=== PATIENT | male | born 1975 | race Caucasian/White ===

== ENCOUNTER → 2017-12-25 | Outpatient (CLI) | payer BC ==
--- NOTE | 2017-12-25 14:13 | Diagnostic Imaging Report ---
EXAMINATION: Lumbar spine. INDICATION: Back pain. FINDINGS: AP, lateral, and spot lateral views were obtained. There are no prior studies available for comparison. The lateral view shows the vertebral body heights and alignment to be within normal limits. There is narrowing of the disc space at L5-S1. The other intervertebral disc spaces are well maintained. There is no fracture or acute bony abnormality evident. There is no sign of a paraspinal mass. There is mild symmetrical sclerosis of the sacroiliac joints. IMPRESSION: 1. There is no evidence for an acute bony abnormality. 2. There is degenerative disc disease at L5-S1. If there is clinical concern regarding spinal stenosis or nerve root encroachment at the L5-S1 level, then MRI will be recommended for further study. Dictated by: Dictated on workstation # [id number]
== END ==
LOC: RAD 13:17
PROVIDERS: ATTEND Nurse Practitioner Family
DX: M51.17 Intervertebral disc disorders with radiculopathy, lumbosacral region (principal)
CPT/HCPCS: 72100

== ENCOUNTER 2018-12-11 09:17 | Observation (INO) | payer OTHER, BC ==
[~2018-12-11] VITALS: Ht 170.2 cm; Wt 122.5 kg
[2018-12-11] MEDS ORDERED: TETANUS,DIPTH,PERTUSS P/F (BOOSTRIX) 0.5 ML VIAL IM STA (09:31)
[2018-12-11 09:45] LABS: HEMOGLOBIN 14.7 G/DL (13.3-17.7); MEAN PLATELET VOLUME 9.8 FL (7.4-10.4); RED CELL DISTRIBUTION WIDTH 14.9 % (10.0-14.5); WHITE BLOOD COUNT 7.3 10^3/uL (4.3-11.0)
[2018-12-11] MEDS ORDERED: NS 100 ML (IVPB) BAG IV ONE (09:45)
[2018-12-11] MEDS ORDERED: IOHEXOL 350 MG/ML 100 ML (OMNIPAQUE 350) VIAL IV ONE (09:45)
[2018-12-11] MEDS ORDERED: RECEIVED CONTRAST (Hold Metformin) IV SCH (09:45)
--- NOTE | 2018-12-11 09:51 | Diagnostic Imaging Report ---
INDICATION: Trauma. Fell 10 feet striking the head. Shoulder pain. FINDINGS: A limited AP view of the chest excludes from visualization much of the lateral right lung and the costophrenic angle on the left. The heart is enlarged. No appreciable fracture deformity. No demonstrated pneumothorax or appreciable pleural fluid. IMPRESSION: Substantial limitations as described with no acute finding revealed. A chest CT is already ordered and pending to cover the excluded zones of the chest outside the dttnu-cg-ybew of this radiograph. Dictated by: Dictated on workstation # [id number]
--- NOTE | 2018-12-11 10:01 | ED Trauma-Multisystem ---
General Chief Complaint: Trauma EMS/Air Arrival Activat Stated Complaint: TRAUMA Nursing Triage Note: pt presents to ed via ems from fall from about 10 ft. Pt reports he hit some railing and scafolding on the way down. pt denies loc but does reports hitting head. pt is in full c-spine percautions upon arrival. Pt has abrasion/lac to back of head, lac to l upper cheek, and pain/deformity to l shoulder. ems reports pt recieved 100 mcg fentanyl in route for pain and 500 ml NS. Source of Information: Patient Exam Limitations: No Limitations History of Present Illness Date Seen by Provider: Dec 11, 2018 Time Seen by Provider: 09:17 Initial Comments Here by EMS with report of tendon 15 foot fall from scaffolding. Apparently he hit rails on the way down and then did hit his head. Does have a laceration and abrasion to the back side of the head and to the left cheek. Does have deformity to the left shoulder per EMS. No loss of consciousness. Patient has GCS of 15 on arrival and apparently has had that throughout EMS evaluation. Denies chest or abdominal pain. Denies pelvic or extremity pain other than the left shoulder. Tetanus is not up-to-date. Occurred: Just Prior to Arrival (proximally 0830) Severity: Moderate Pain/Injury Location: Back, Head, Upper Extremity (left shoulder) Method of Injury: Fall Modifying Factors: Immobilization; No Movement Loss of Consciousness: No Loss of Consciousness Associated Symptoms (Fall): No Abdominal Pain, No Chest Pain, No Confusion; Headache; No Lightheadedness, No Nausea/Vomiting, No Neck Pain, No Shortness of Air Allergies and Home Medications Allergies Coded Allergies: No Known Drug Allergies (Unverified , 12/11/18) Home Medications No Active Prescriptions or Reported Meds Patient Home Medication List Home Medication List Reviewed: Yes Review of Systems Review of Systems Constitutional: see HPI; No chills, No fever Eyes: No Symptoms Reported Ears: No Symptoms Reported Nose: No Symptoms Reported Mouth: No Symptoms Reported Throat: No Symptoms to Report Respiratory: No cough, No short of breath Cardiovascular: Denies Chest Pain, Denies Irregular Heart Rate Gastrointestinal: No abdominal pain, No nausea, No vomiting Genitourinary: no symptoms reported Musculoskeletal: see HPI, joint pain, muscle pain Skin: change in color, lesions Psychiatric/Neurological: Headache; Denies Weakness Past Xcnwpym-Mgdjhm-Dinrgl Hx Past Med/Social Hx: Reviewed Nursing Past Med/Soc Hx Patient Social History Alcohol Use: Occasionally Uses Recreational Drug Use: No Smoking Status: Former Smoker Former Smoker, Quit: Sep 12, 2018 Recent Foreign Travel: No Contact w/Someone Who Travel: No Recent Infectious Disease Expo: No Recent Hopitalizations: No Immunizations Up To Date Tetanus Booster (TDap): More than 5yrs Seasonal Allergies Seasonal Allergies: No Past Medical History Surgeries: No Respiratory: No Cardiac: No Neurological: No Genitourinary: No Gastrointestinal: No Endocrine: No HEENT: No Cancer: No Psychosocial: No Integumentary: No Blood Disorders: No Family Medical History Reviewed Nursing Family Hx No Pertinent Family Hx Physical Exam Vital Signs Vital Signs - First Documented 12/11/18 10:40 Temp 97.5 Pulse 66 Resp 12 B/P (MAP) 123/80 (94) Pulse Ox 100 Height, Weight, BMI Height: 5'7.00" Weight: 270lbs. oz. 122.846427gr; 42.18 BMI Method:Stated General Appearance: WD/WN, Mild Distress (shoulder pain), Obese Head: Ecchymosis (posterior), Other (superficial laceration and abrasion to the posterior scalp with surrounding contusion and ecchymosis); No De La Rosa's Sign Eyes: Bilateral Eye Normal Inspection, Bilateral Eye PERRL, Bilateral Eye EOMI Ears, Nose, Throat: Hearing Grossly Normal, No Evidence of ENT Injury, No Dental Injury Neck: Non Tender, Other (c-collar) Cardiovascular: Regular Rate, Rhythm, No Murmur Respiratory: Lungs Clear, Normal Breath Sounds Gastrointestinal: Non Tender, Soft Back: Normal Inspection, No CVA Tenderness, No Vertebral Tenderness Extremity: Pelvis Stable, Other (tender to the left shoulder and he is guarding that.) Neurologic/Psychiatric: Alert, Oriented x3, No Motor/Sensory Deficits, Normal Mood/Affect Skin: Warm/Dry, Ecchymosis (posterior scalp), Other (one to 2 cm laceration to the left cheek. Abrasion/laceration to the posterior scalp with surrounding ecchymosis.) [place] Coma Score Best Eye Response (Jessica): (4) Open Spontaneously Best Verbal Response ([place]): (5) Oriented Best Motor Response ([place]): (6) Obeys Commands Procedures/Interventions Wound Location: Face Other Wound Location Left cheek Wound Length (cm): 1.5 Wound's Depth, Shape: superficial, linear Wound Explored: contaminated Irrigated w/ Saline (ccs): 125 Betadine Prep?: Yes Anesthesia: Lidocaine w/ Epi Volume Anesthetic (ccs): 3 Wound Debrided: minimal Suture: Prolene Suture Size: 5-0 Number of Sutures: 2 Layer Closure?: 1 Number Deep Layer Sutures: 0 Sterile Dressing Applied?: Yes Progress Procedure performed by Mina Mcintosh APRN. Tolerated procedure well with no complications. Covered with antibiotic ointment and dressing. Progress/Results/Core Measures Results/Orders Lab Results Laboratory Tests Test 12/11/18 09:35 Range/Units White Blood Count 7.3 4.3-11.0 10^3/uL Red Blood Count 4.94 4.35-5.85 10^6/uL Hemoglobin 14.7 13.3-17.7 G/DL Hematocrit 44 40-54 % Mean Corpuscular Volume 88 80-99 FL Mean Corpuscular Hemoglobin 30 25-34 PG Mean Corpuscular Hemoglobin Concent 34 32-36 G/DL Red Cell Distribution Width 14.9 H 10.0-14.5 % Platelet Count 317 130-400 10^3/uL Mean Platelet Volume 9.8 7.4-10.4 FL Sodium Level 138 135-145 MMOL/L Potassium Level 4.0 3.6-5.0 MMOL/L Chloride Level 107 98-107 MMOL/L Carbon Dioxide Level 23 21-32 MMOL/L Anion Gap 8 5-14 MMOL/L Blood Urea Nitrogen 17 7-18 MG/DL Creatinine 1.17 0.60-1.30 MG/DL Estimat Glomerular Filtration Rate > 60 BUN/Creatinine Ratio 15 Glucose Level 122 H 70-105 MG/DL Calcium Level 9.0 8.5-10.1 MG/DL Total Bilirubin 0.3 0.1-1.0 MG/DL Direct Bilirubin 0.2 0.0-0.3 MG/DL Indirect Bilirubin 0.1 MG/DL Aspartate Amino Transf (AST/SGOT) 33 5-34 U/L Alanine Aminotransferase (ALT/SGPT) 36 0-55 U/L Alkaline Phosphatase 69 40-136 U/L Total Protein 7.0 6.4-8.2 GM/DL Albumin 3.9 3.2-4.5 GM/DL Serum Alcohol < 10 <10 MG/DL My Orders Orders - ERNST ORTEGA MD Ct Head/Cervical Spine Wo (12/11/18 09:31) Ct Chest W (12/11/18:31) Chest 1 View, Ap/Pa Only (12/11/18 09:31) Cbc No Diff (12/11/18 09:31) Basic Metabolic Panel (12/11/18:31) Liver Panel (12/11/18:31) Alcohol (12/11/18:31) Ua Culture If Indicated (12/11/18:31) Type And Screen (12/11/18:31) End Tidal Co2 (12/11/18:31) Monitor-Rhythm Ecg Trace Only (12/11/18:) Dipht,Pertuss(Acell),Tet Adult (Boostrix (12/11/18 09:31) Iohexol Injection (Omnipaque 350 Mg/Ml 1 (12/11/18 09:45) Contrast Received (Contrast Received) (12/11/18 09:45) Ns (Ivpb) (Sodium Chloride 0.9% Ivpb Bag (12/11/18 09:45) Shoulder, Left, 3 Views (12/11/18 10:12) Fentanyl Injection (Sublimaze Injection (12/11/18 10:29) Lidocaine/Epi Mpf 2% 1:200,000 (Xylocain (12/11/18 11:45) Lidocaine/Epi 2% 1:100,000 (Xylocaine/Ep (12/11/18 11:33) Shoulder Immoblizer (12/11/18 12:00) Medications Given in ED Current Medications Medications Dose Ordered Sig/Shira Route Start Time Stop Time Status Last Admin Dose Admin Iohexol 75 ml ONCE ONCE IV 12/11/18 09:45 12/11/18 09:46 DC 12/11/18 09:56 75 ML Sodium Chloride 100 ml ONCE ONCE IV 12/11/18 09:45 12/11/18 09:46 DC 12/11/18 09:56 100 ML Vital Signs/I&O 12/11/18 10:40 Temp 97.5 Pulse 66 Resp 12 B/P (MAP) 123/80 (94) Pulse Ox 100 Progress Progress Note : Progress Note Seen and evaluated on arrival. Type II trauma activation due to fall and injury. ATLS exam performed. IV by EMS. Labs, chest x-ray, CT head and neck without contrast as well as CT chest with contrast ordered. Left shoulder x-ray ordered. Trauma surgeon, Dr. Doyle is here on patient's arrival. He agrees with plan. 1002: CT chest does not show any intrathoracic abnormality nor does chest x-ray per preliminary read. Pending CT head and neck and left shoulder x- ray. Dr. Doyle aware and agrees with emergency department evaluation and plan. 1110: C collar removed after negative CT scan. We will repair the wound on the face. Patient is drowsy and family is concerned as he lives by himself. We will consider observation admission. This was discussed with Dr. Doyle who agrees. I discussed the case with Dr. Jack and he will look at the x-rays. 1130: Dr. Jack is looked at the x-rays and is referring the patient to Dr. Will for appointment. I did call Dr. Will's office and we do have an appointment set for him at 1430 tomorrow (12/12/18) at the [place], [place], office. This was passed onto the patient and family. We will admit the patient overnight for observation due to concussion symptoms and patient agrees and family is appreciative. Admit, observation status. Shoulder sling immobilizer be placed to the left shoulder. Diagnostic Imaging Diagonstic Imaging: Xray Plain Films/CT/US/NM/MRI: chest Comments [facility] [place] NAME: SINDY JOHNSON [facility] REC#: [id number] PT STATUS: REG ER : 1975 PHYSICIAN: ERNST ORTEGA MD ADMIT DATE: 12/11/18/ER Draft Date of Exam:12/11/18 CHEST 1 VIEW, AP/PA ONLY INDICATION: Trauma. Fell 10 feet striking the head. Shoulder pain. FINDINGS: A limited AP view of the chest excludes from visualization much of the lateral right lung and the costophrenic angle on the left. The heart is enlarged. No appreciable fracture deformity. No demonstrated pneumothorax or appreciable pleural fluid. IMPRESSION: Substantial limitations as described with no acute finding revealed. A chest CT is already ordered and pending to cover the excluded zones of the chest outside the xoqsx-wi-vxti of this radiograph. Dictated on workstation # [id number] Dict: 12/11/18 0947 Trans: 12/11/18 0950 [id number] Interpreted by: TIFFANIE SOLIS Electronically signed by: Diagonstic Imaging: CT Plain Films/CT/US/NM/MRI: c-spine, head Comments NAME: SINDY JOHNSON [facility] REC#: [id number] PT STATUS: REG ER : 1975 PHYSICIAN: ERNST ORTEGA MD ADMIT DATE: 12/11/18/ER Signed Date of Exam: 12/11/18 CT HEAD/CERVICAL SPINE WO PROCEDURE: CT head and CT cervical spine without contrast. TECHNIQUE: Multiple contiguous axial images were obtained through the brain and cervical spine without the use of intravenous contrast. Sagittal and coronal reformations through the cervical spine were then performed. INDICATION: Head and neck trauma after fall. FINDINGS: The ventricles and sulci are within normal limits. No hydrocephalus. There is no midline shift. There is no intracranial mass, hemorrhage or extra-axial fluid collection. Calvarium is intact. Opacification of the ethmoid air cells sphenoid sinus and left maxillary sinus. Mastoid air cells are clear. There is straightening of the normal cervical lordosis. The vertebral body heights are well-maintained. The prevertebral soft tissues are within normal limits. There is no fracture or traumatic subluxation. The odontoid is intact. Lateral masses are well aligned. The lung apices are clear. IMPRESSION: Moderate sinus disease as described. No acute intracranial abnormality. No fracture or traumatic subluxation of the cervical spine. Dictated by: Dictated on workstation # [id number] Dict: 12/11/18 1004 Trans: 12/11/18 1029 Interpreted by: KEREN ABEBE MD Electronically signed by: KEREN ABEBE MD 12/11/18 1029 Diagonstic Imaging: CT Plain Films/CT/US/NM/MRI: chest Comments [facility] [place] NAME: SINDY JOHNSON [facility] REC#: [id number] PT STATUS: REG ER : 1975 PHYSICIAN: ERNST ORTEGA MD ADMIT DATE: 12/11/18/ER Draft Date of Exam:12/11/18 CT CHEST W PROCEDURE: CT chest with contrast only. TECHNIQUE: Multiple contiguous axial images were obtained through the chest after administration of intravenous contrast. INDICATION: Ten foot fall, chest and shoulder pain. There is no lung contusion, pneumothorax or hemothorax. No findings of pneumatocele or aspiration. There is no pleural or pericardial hemorrhage or effusion. The aorta is intact. There is no mediastinal hematoma. Sternum and manubrium appeared intact. Diaphragm appeared intact. The partially visualized right scapula appeared intact. The humerus is outside the yvjzp-ht-earz. Middle and lateral thirds of the clavicles outside the fnngh-av-whyd. The sternoclavicular joints normal. No identifiable rib fracture deformity. Visualized upper abdomen showed no free fluid or free air. Reconstruction views revealed the thoracic vertebral body heights to be maintained. Disc space is normal. Facet relationships normal. No fracture demonstrated. IMPRESSION: No acute or posttraumatic sequelae apparent at this exam. Much of the shoulders extend outside the xwbxx-ec-ojht. Dictated on workstation # [id number] Dict: 12/11/18 1026 Trans: 12/11/18 1035 [facility] [id number] Interpreted by: TIFFANIE SOLIS Electronically signed by: Diagonstic Imaging: Xray Plain Films/CT/US/NM/MRI: other (left shoulder) Comments INDICATION: Fall. FINDINGS: There is a markedly comminuted impacted fracture of the left humeral head and neck. AC joint is intact. Clavicle is intact. Left lung is clear. Soft tissues are unremarkable. IMPRESSION: Markedly comminuted and impacted fracture of the left humeral head and neck. Dictated by: Dictated on workstation # [id number] Dict: 12/11/18 1011 Trans: 12/11/18 1039 Interpreted by: KEREN ABEBE MD Electronically signed by: KEREN ABEBE MD 12/11/18 1039 Departure Communication (Admissions) Time/Spoke to Admitting Phy: 11:10 Impression Primary Impression: Shoulder fracture, left Qualified Codes: S42.92XA - Fracture of left shoulder girdle, part unspecified , initial encounter for closed fracture Additional Impressions: Concussion without loss of consciousness Qualified Codes: S06.0X0A - Concussion without loss of consciousness, initial encounter Laceration of face Qualified Codes: S01.81XA - Laceration without foreign body of other part of head, initial encounter Disposition: ADMITTED INPATIENT Condition: Stable Admissions Decision to Admit Reason: Admit from ER (Trauma) Decision to Admit/Date: Dec 11, 2018 Time/Decision to Admit Time: 11:10 Departure-Patient Inst. Referrals: BEKAH HARTLEY DO (PCP/Family) Primary Care Physician Scripts No Active Prescriptions or Reported Meds Copy Copies To 1: MARVIN WILL MD Copies To 2: BEKAH HARTLEY TIMOTHY D MD Dec 11, 2018 10:01
[2018-12-11 10:08] LABS: ALANINE AMINOTRANSFERASE 36 U/L (0-55); ALBUMIN 3.9 GM/DL (3.2-4.5); ALKALINE PHOSPHATASE 69 U/L (40-136); BILIRUBIN,DIRECT 0.2 MG/DL (0.0-0.3); BILIRUBIN,INDIRECT 0.1 MG/DL; BILIRUBIN,TOTAL 0.3 MG/DL (0.1-1.0); BUN/CREATININE RATIO 15; CARBON DIOXIDE 23 MMOL/L (21-32); CHLORIDE 107 MMOL/L (98-107); CREATININE SERUM 1.17 MG/DL (0.60-1.30); GFR ESTIMATED > 60; GLUCOSE 122 MG/DL (70-105); SODIUM 138 MMOL/L (135-145)
--- NOTE | 2018-12-11 10:12 | Diagnostic Imaging Report ---
PROCEDURE: CT head and CT cervical spine without contrast. TECHNIQUE: Multiple contiguous axial images were obtained through the brain and cervical spine without the use of intravenous contrast. Sagittal and coronal reformations through the cervical spine were then performed. INDICATION: Head and neck trauma after fall. FINDINGS: The ventricles and sulci are within normal limits. No hydrocephalus. There is no midline shift. There is no intracranial mass, hemorrhage or extra-axial fluid collection. Calvarium is intact. Opacification of the ethmoid air cells sphenoid sinus and left maxillary sinus. Mastoid air cells are clear. There is straightening of the normal cervical lordosis. The vertebral body heights are well-maintained. The prevertebral soft tissues are within normal limits. There is no fracture or traumatic subluxation. The odontoid is intact. Lateral masses are well aligned. The lung apices are clear. IMPRESSION: Moderate sinus disease as described. No acute intracranial abnormality. No fracture or traumatic subluxation of the cervical spine. Dictated by: Dictated on workstation # [id number]
[2018-12-11] MEDS ORDERED: fentaNYL INJECTION 100 MCG/2 ML AMP IVP STA (10:29)
--- NOTE | 2018-12-11 10:36 | Diagnostic Imaging Report ---
PROCEDURE: CT chest with contrast only. TECHNIQUE: Multiple contiguous axial images were obtained through the chest after administration of intravenous contrast. INDICATION: Ten foot fall, chest and shoulder pain. There is no lung contusion, pneumothorax or hemothorax. No findings of pneumatocele or aspiration. There is no pleural or pericardial hemorrhage or effusion. The aorta is intact. There is no mediastinal hematoma. Sternum and manubrium appeared intact. Diaphragm appeared intact. The partially visualized right scapula appeared intact. The humerus is outside the glzai-no-jwwz. Middle and lateral thirds of the clavicles outside the kcohp-fd-rebh. The sternoclavicular joints normal. No identifiable rib fracture deformity. Visualized upper abdomen showed no free fluid or free air. Reconstruction views revealed the thoracic vertebral body heights to be maintained. Disc space is normal. Facet relationships normal. No fracture demonstrated. IMPRESSION: No acute or posttraumatic sequelae apparent at this exam. Much of the shoulders extend outside the uviqf-zc-msib. Dictated by: Dictated on workstation # [id number]
[2018-12-11] MEDS ORDERED: LIDOCAINE/EPI 2% 1:100,00 (XYLOCAINE) 20 ML VIAL ONE (11:33)
[2018-12-11] MEDS ORDERED: LIDOCAINE/EPI 2% 1:200,00 (XYLOCAINE) 10 ML VIAL INJ ONE (11:45)
--- NOTE | 2018-12-11 11:45 | RADIOLOGY REPORT ---
NAME: SINDY JOHNSON [facility] REC#: [id number] PT STATUS: REG ER : 1975 PHYSICIAN: ERNST ORTEGA MD ADMIT DATE: 12/11/18/ER CORRECTED Signed Date of Exam:12/11/18 SHOULDER, LEFT, 3 VIEWS INDICATION: Fall. FINDINGS: There is a markedly comminuted impacted fracture of the left humeral head and neck. AC joint is intact. Clavicle is intact. Left lung is clear. Soft tissues are unremarkable. IMPRESSION: Markedly comminuted and impacted fracture of the left humeral head and neck. Dictated by: Dictated on workstation # [id number] Dict: 12/11/18 1011 Trans: 12/11/18 1039 [facility] [id number] Interpreted by: KEREN ABEBE MD Electronically signed by: KEREN ABEBE MD 12/11/18 1039 MTDD
[2018-12-11] MEDS ORDERED: fentaNYL INJECTION 100 MCG/2 ML AMP ONE (12:40)
--- NOTE | 2018-12-11 12:40 | NUR ---
THIS RN CALLED TO PT ROOM BY SUSAN. REPORTS WHEN TRYING TO SIT PT UPWARDS TO ATTACH SHOULDER IMOBILIZER PT BECAME DIAPHORETIC, WEAK, PALE, AND NAUSEATED. COOL WRAG PLACED ON PT FOREHEAD AND PT LAYED BACK DOWN. PT BP IS 63/45. DR ORTEGA INFORMED AND IV FLUIDS STARTED WO ON PT AT THIS TIME.
[2018-12-11] MEDS ORDERED: NS IV 1000 ML 1,000 ML ONE (12:43)
--- NOTE | 2018-12-11 13:01 | NUR ---
PT STARTED TO FEEL BETTER AT THIS TIME. DR ORTEGA REPORTS WOULD LIKE TO CONTINUE WITH SHOULDER IMMOBILIZER PLACEMENT. PT SAT UP IN BED AND SHOULDER IMMOBILIZER PLACED. PT CURRENT BP WITH FLUIDS GOING IS 108/73. PT HR 78
--- NOTE | 2018-12-11 13:30 | NUR ---
SINDY JOHNSON admitted to room 417-1, with an admitting diagnosis of LEFT SHOULDER FX AND CONCUSSION, on 12/11/18 from ED via BED/CART, accompanied by CO-WORKER AND ED STAFF. SINDY JOHNSON introduced to surroundings, call light, bed controls, phone, TV, temperature control, lights, meal times, smoking policy, visitor policy, side rail policy, bathrooms and showers. Patient Rights given to patient in the handbook. SINDY JOHNSON verbalizes understanding that [facility] is not responsible for the loss or damage to any personal effects or valuables that are kept in the patients possession during their hospitalization.
[2018-12-11] MEDS ORDERED: CATHETER FLUSH 10 ML SYR IV PRN (14:30)
[2018-12-11] MEDS ORDERED: ONDANSETRON 4 MG/2 ML (SDV) Z0FRAN IV PRN (14:30)
[2018-12-11] MEDS ORDERED: FLU QUADRIvalent (5+ YOA) 2018-2019 (AFLURIA) 0.5 ML IM ONE (14:45)
[2018-12-11] MEDS: fentaNYL INJECTION 100 MCG/2 ML AMP IV PRN ×4 (15:15→23:25)
[2018-12-11] MEDS: HYDROcodone/APAP 7.5 MG/325 MG (LORTAB, LORCET PLUS) TABLET PO PRN (15:16)
[2018-12-11 16:16] VITALS: BP 129/76
--- NOTE | 2018-12-11 17:38 | History & Physical-Surgical ---
History of Present Illness History of Present Illness Reason for visit/HPI Pt was a type II trauma activation, he complained of Left shoulder pain. He got pain meds in the ER and became very sleepy; felt that it was best to admit for observation. HPI per ED: Here by EMS with report of tendon 15 foot fall from scaffolding. Apparently he hit rails on the way down and then did hit his head. Does have a laceration and abrasion to the back side of the head and to the left cheek. Does have deformity to the left shoulder per EMS. No loss of consciousness. Patient has GCS of 15 on arrival and apparently has had that throughout EMS evaluation. Denies chest or abdominal pain. Denies pelvic or extremity pain other than the left shoulder. Tetanus is not up-to-date. Occurred: Just Prior to Arrival (proximally 0830) Severity: Moderate Pain/Injury Location: Back, Head, Upper Extremity (left shoulder) Method of Injury: Fall Modifying Factors: Immobilization; No Movement Loss of Consciousness: No Loss of Consciousness Associated Symptoms (Fall): No Abdominal Pain, No Chest Pain, No Confusion; Headache; No Lightheadedness, No Nausea/Vomiting, No Neck Pain, No Shortness of Air When I saw pt this evening he was still sleepy and complained of sweats. He also had shoulder pain but controlled with meds. Date of Admission Dec 11, 2018 at 12:44 Time Seen by a Provider: 09:25 I consulted on this patient on 12/11/18 17:32 Attending Physician José Manuel Doyle DO Admitting Physician Clement Lloyd DO Consult Allergies and Home Medications Allergies Coded Allergies: No Known Drug Allergies (Unverified , 12/11/18) Home Medications No Active Prescriptions or Reported Meds Patient Home Medication List Home Medication List Reviewed: Yes Past Fstwduh-Hboyir-Hawnaf Hx Patient Social History Alcohol Use: Occasionally Uses Recreational Drug Use: No Smoking Status: Former Smoker Former Smoker, Quit: Sep 12, 2018 Recent Foreign Travel: No Contact w/Someone Who Travel: No Recent Infectious Disease Expo: No Recent Hopitalizations: No Immunizations Up To Date Tetanus Booster (TDap): More than 5yrs Seasonal Allergies Seasonal Allergies: No Surgeries History of Surgeries: No Respiratory History of Respiratory Disorde: No Cardiovascular History of Cardiac Disorders: No Neurological History of Neurological Disord: No Genitourinary History of Genitourinary Disor: No Gastrointestinal History of Gastrointestinal Di: No Endocrine History of Endocrine Disorders: No HEENT History of HEENT Disorders: No Cancer History of Cancer: No Psychosocial History of Psychiatric Problem: No Integumentary History of Skin or Integumenta: No Blood Transfusions History of Blood Disorders: No Family Medical History Significant Family History: No Pertinent Family Hx, Other Conditions/Hx (Pt states neither parent has DM or HTN. Denies cancer in his family) Review of Systems Constitutional: No chills; weight gain EENTM: No blurred vision, No double vision, No epistaxis, No throat swelling Respiratory: No hemoptysis, No short of breath, No stridor Cardiovascular: No chest pain, No edema, No Hx of Intervention, No palpitations Gastrointestinal: No abdominal pain, No constipation, No diarrhea, No hematemesis Genitourinary: No dysuria, No frequency, No hematuria Musculoskeletal: joint pain, muscle stiffness, muscle cramps Psychiatric/Neurological: Denies Anxiety, Denies Depressed pt denies any abnormal bleeding or bruising Physical Exam Vital Signs Vital Signs - First Documented 12/11/18 12/11/18 10:40 16:16 Temp 97.5 Pulse 66 Resp 12 B/P (MAP) 123/80 (94) Pulse Ox 100 O2 Delivery Room Air Capillary Refill : Less Than 3 SecondsLess Than 3 Seconds Height, Weight, BMI Height: 5'7.00" Weight: 270lbs. 0.0oz. 122.018886yp; 42.3 BMI Method:Stated General Appearance: Mild Distress, Obese Eyes: Bilateral Eye PERRL, Bilateral Eye EOMI HEENT: Pharynx Normal, Moist Mucous Membranes; No Scleral Icterus (L), No Scleral Icterus (R) Neck: Full Range of Motion, Non Tender Respiratory: Chest Non Tender, Lungs Clear, Normal Breath Sounds, No Accessory Muscle Use, No Respiratory Distress Cardiovascular: Regular Rate, Rhythm, No Edema, No Murmur Gastrointestinal: Normal Bowel Sounds, No Organomegaly, No Pulsatile Mass, Non Tender, Soft Rectal: Deferred Genital/Rectal: Normal Genital Exam; No Blood at Uretheral Meatus Back: No CVA Tenderness, No Vertebral Tenderness Extremity: No Calf Tenderness, No Pedal Edema, Other (Left shoulder is extremely tender, no open fracture but appears to have deformity) Neurologic/Psychiatric: Alert, Oriented x3, Normal Mood/Affect, 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 Norm as Tested Skin: Normal Color, Cool, Damp Lymphatic: No Adenopathy (neck, axilla or groin) Data Review Labs Laboratory Tests 12/11/18 09:35: White Blood Count 7.3, Red Blood Count 4.94, Hemoglobin 14.7, Hematocrit 44, Mean Corpuscular Volume 88, Mean Corpuscular Hemoglobin 30, Mean Corpuscular Hemoglobin Concent 34, Red Cell Distribution Width 14.9H, Platelet Count 317, Mean Platelet Volume 9.8, Sodium Level 138, Potassium Level 4.0, Chloride Level 107, Carbon Dioxide Level 23, Anion Gap 8, Blood Urea Nitrogen 17, Creatinine 1.17, Estimat Glomerular Filtration Rate > 60, BUN/Creatinine Ratio 15, Glucose Level 122H, Calcium Level 9.0, Total Bilirubin 0.3, Direct Bilirubin 0.2, Indirect Bilirubin 0.1, Aspartate Amino Transf (AST/SGOT) 33, Alanine Aminotransferase (ALT/SGPT) 36, Alkaline Phosphatase 69, Total Protein 7.0, Albumin 3.9, Serum Alcohol < 10 12/11/18 12:48: Glucometer 101 Assessment/Plan Assessment/Plan Admission Diagonsis Left Acromial Fx Proximal humerous fx Admission Status: Observation Assessment/Plan Left Acromial Fx Proximal humerous fx Plan is to admit for pain control, IVF, anti-emetics. Shoulder placed in a sling. Regular diet. Clinical Quality Measures DVT/VTE Risk/Contraindication: Risk Factor Score Per Nursin RFS Level Per Nursing on Admit: 4+=Very High JOSÉ MANUEL DOYLE DO Dec 11, 2018 17:37
[2018-12-11 19:59] VITALS: BP 136/77
[2018-12-11] MEDS: CATHETER FLUSH 10 ML SYR IV SCH (20:54)
[2018-12-12] VITALS: BP 131/72
[2018-12-12] MEDS: fentaNYL INJECTION 100 MCG/2 ML AMP IV PRN ×3 (01:02→07:00)
[2018-12-12] MEDS: HYDROcodone/APAP 7.5 MG/325 MG (LORTAB, LORCET PLUS) TABLET PO PRN ×2 (01:59→08:39)
[2018-12-12 04:00] VITALS: BP 134/85
[2018-12-12 05:38] LABS: BASOPHILS % (AUTO) 0 % (0-10); EOSINOPHILS # (AUTO) 0.1 10^3/uL (0.0-0.3); EOSINOPHILS % (AUTO) 1 % (0-10); HEMATOCRIT 41 % (40-54); HEMOGLOBIN 13.8 G/DL (13.3-17.7); LYMPHOCYTES # (AUTO) 2.6 X 10^3 (1.0-4.0); LYMPHOCYTES % (AUTO) 30 % (12-44); MEAN CORPUSCULAR HEMOGLOBIN 30 PG (25-34); MEAN CORPUSCULAR HGB CONC 34 G/DL (32-36); MEAN CORPUSCULAR VOLUME 89 FL (80-99); MEAN PLATELET VOLUME 10.1 FL (7.4-10.4); MONOCYTES % (AUTO) 12 % (0-12); NEUTROPHILS % (AUTO) 57 % (42-75); PLATELET COUNT 253 10^3/uL (130-400); RED CELL DISTRIBUTION WIDTH 14.8 % (10.0-14.5); WHITE BLOOD COUNT 8.7 10^3/uL (4.3-11.0)
[2018-12-12] MEDS: CATHETER FLUSH 10 ML SYR IV SCH (06:42)
[2018-12-12 08:00] VITALS: BP 134/91
--- NOTE | 2018-12-12 10:17 | Progress Note ---
Subjective Time Seen by a Provider: 10:08 Subjective/Events-last exam Pt seen and examined, states besides shoulder he feels fine. Tolerating diet. Review of Systems General: No Chills, No Night Sweats Pulmonary: No Dyspnea, No Cough Cardiovascular: No: Chest Pain, Palpitations Gastrointestinal: No: Nausea, Vomiting, Abdominal Pain Objective Exam Vital Signs Date Time Temp Pulse Resp B/P (MAP) Pulse Ox O2 Delivery O2 Flow Rate FiO2 12/12/18 08:00 97.5 85 18 134/91 (105) 97 Room Air 12/12/18 04:00 96.8 80 20 134/85 (101) 95 Room Air 12/12/18 00:00 97.0 71 18 131/72 (91) 97 Room Air 12/11/18 20:00 Room Air 12/11/18 19:59 97.6 88 20 136/77 (96) 95 Room Air 12/11/18 16:49 Room Air 12/11/18 16:16 97.3 87 14 129/76 (93) 97 Room Air 12/11/18 13:23 97.5 65 12 119/79 (92) 100 12/11/18 10:40 97.5 66 12 123/80 (94) 100 I & O 12/12/18 07:00 Intake Total 1540 ml Output Total 1550 ml Balance -10 ml Capillary Refill : Less Than 3 SecondsLess Than 3 Seconds General Appearance: No Apparent Distress, WD/WN, Obese HEENT: Pharynx Normal, Moist Mucous Membranes; No Scleral Icterus (L), No Scleral Icterus (R) Neck: Full Range of Motion, Non Tender Respiratory: Chest Non Tender, Lungs Clear, Normal Breath Sounds, No Accessory Muscle Use, No Respiratory Distress Cardiovascular: Regular Rate, Rhythm, No Edema, No Murmur Gastrointestinal: normal bowel sounds, soft, no organomegaly Extremity: No Calf Tenderness, No Pedal Edema, Other (Left shoulder is extremely tender, no open fracture but appears to have deformity) Neurologic/Psychiatric: Alert, Oriented x3, Normal 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, 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 Skin: Normal Color, Warm/Dry Lymphatic: No Adenopathy (neck, axilla or groin) Results Lab Laboratory Tests 12/11/18 12:48: Glucometer 101 12/12/18 05:25: White Blood Count 8.7, Red Blood Count 4.58, Hemoglobin 13.8, Hematocrit 41, Mean Corpuscular Volume 89, Mean Corpuscular Hemoglobin 30, Mean Corpuscular Hemoglobin Concent 34, Red Cell Distribution Width 14.8H, Platelet Count 253, Mean Platelet Volume 10.1, Neutrophils (%) (Auto) 57, Lymphocytes (%) (Auto) 30 , Monocytes (%) (Auto) 12, Eosinophils (%) (Auto) 1, Basophils (%) (Auto) 0, Neutrophils # (Auto) 5.0, Lymphocytes # (Auto) 2.6, Monocytes # (Auto) 1.0, Eosinophils # (Auto) 0.1, Basophils # (Auto) 0.0 Assessment/Plan Assessment/Plan Assessment/Plan Left Acromial Fx Proximal humerous fx Pt is much improved and appears to be back to normal besides the shoulder. He has appt to see Orthopedic surgeon today at 215. Clinical Quality Measures DVT/VTE Risk/Contraindication: Risk Factor Score Per Nursin RFS Level Per Nursing on Admit: 4+=Very High JASWINDER العلي DO Dec 12, 2018 10:17
[2018-12-12] MEDS ORDERED: HYDR-3820 PO (10:18)
--- NOTE | 2018-12-12 10:20 | Discharge Inst-Surgical ---
Discharge Inst-Surgical Depart Medication/Instructions New, Converted or Re-Newed RX: RX Given to Pt/Family Patient Instructions Follow up Appt: Make appointment with Ortho. Instructions: No strenuous activity. May shower in 24 hours, no tub bath or soaking. Symptoms to Report: Appetite Changes, Extremity Discoloration, Numbness/Tingling, Swelling Increased , Bleeding Excessive, Eyesight Changes, Pain Increased, Urine Color Change, Constipation(Persistent), Fever over 101 degree F, Pain/Pressure in chest, Urinating Difficulty, Cough Up/Vomit Blood, Heart Beat Irreg/Pounding, Pain/ Pressure in jaw, Cramps in feet or legs, Lightheadedness, Pain/Pressure in shoulder, Diarrhea(Persistent), Memory Changes Suddenly, Questions/Concerns, Weight gain consecutive days, Dizziness/Fainting, Nausea/Vomiting, Shortness of Breath, Weight gain over 2 pounds If questions or concerns contact your physician Or seek help at emergency department. Activity Activity as Tolerated: Yes Activity Instructions: Avoid Pulling & Pushing Driving Instructions: No Driving/Refer to Dr. Michel Discharge Diet: No Restrictions Skin/Wound Care Bathing Instructions: JASWINDER Pereira DO Dec 12, 2018 10:20
[2018-12-12 10:43] VITALS: BP 134/91
== END 2018-12-12 10:35 | disposition home or self-care (01) ==
LOC: EDUNIT# 09:17 → ER 09:20 → 4TH 12:44
PROVIDERS: ADMIT Surgery; ATTEND Surgery
DX: S06.0X0A Concussion without loss of consciousness, initial encounter (principal); S42.202A Unspecified fracture of upper end of left humerus, initial encounter for closed fracture; S42.122A Displaced fracture of acromial process, left shoulder, initial encounter for closed fracture; S01.01XA Laceration without foreign body of scalp, initial encounter; S01.412A Laceration without foreign body of left cheek and temporomandibular area, initial encounter; R40.2412 Glasgow coma scale score 13-15, at arrival to emergency department; W12.XXXA Fall on and from scaffolding, initial encounter; Z87.891 Personal history of nicotine dependence
CPT/HCPCS: 12001; 36415; 70450; 71045; 71260; 72125; 73030; 80048; 80076; 80320; 82962; 85025; 85027; 86850; 86900; 86901; 90715; 93041; G0378

== ENCOUNTER 2018-12-19 11:15 | Emergency (ER) | payer OTHER, BC ==
[~2018-12-19] VITALS: Ht 177.8 cm; Wt 128.8 kg
[~2018-12-19 11:15] MED LIST: HYDR-3820 PO
[2018-12-19] MEDS ORDERED: CEPH-507 PO (12:32)
--- NOTE | 2018-12-19 12:32 | ED Integumentary General ---
General Chief Complaint: Skin/Wound Problems Stated Complaint: STITCHES CAME OUT;COUGH Nursing Triage Note: PT AMBULATED TO ROOM 6 PT HAS SURGICAL WOUND ON L SHOULDER ON MONDAY, PT HAS DRESSING IN PLACE SOAKED 1/2 WAY W BLOODY DRAINAGE, NO ODOR NOTED. DENIES INCREASED PAIN OR FEVER Source: patient Exam Limitations: no limitations History of Present Illness Date Seen by Provider: Dec 19, 2018 Time Seen by Provider: 12:28 Initial Comments Patient fell from scaffolding on 12/11/18 and sustained a left proximal humerus fracture. He had operative repair by Dr. Will at [facility] on 12/13/18. He presents today with bleeding from the incision to the anterior left humerus. There is no increase in swelling, no fevers chills or increase in pain. He is only concerned about the degree of oozing of blood as it had saturated his dressing this morning.. Timing/Duration: constant Severity: moderate Location: extremities Associated Symptoms: denies symptoms Allergies and Home Medications Allergies Coded Allergies: No Known Drug Allergies (Unverified , 12/11/18) Home Medications Hydrocodone/Acetaminophen 1 Each Tablet, 1 TAB PO Q6H Prescribed by: JASWINDER العلي on 12/12/18 1018 Patient Home Medication List Home Medication List Reviewed: Yes Review of Systems Review of Systems Constitutional: see HPI EENTM: see HPI Respiratory: no symptoms reported Cardiovascular: no symptoms reported Genitourinary: no symptoms reported Musculoskeletal: see HPI Skin: see HPI Psychiatric/Neurological: No Symptoms Reported Endocrine: No Symptoms Reported Past Lfwtooi-Ldgbpa-Mjhuxc Hx Patient Social History Alcohol Use: Denies Use Recreational Drug Use: No Smoking Status: Never a Smoker Former Smoker, Quit: Sep 12, 2018 Recent Foreign Travel: No Contact w/Someone Who Travel: No Recent Infectious Disease Expo: No Recent Hopitalizations: No Immunizations Up To Date Tetanus Booster (TDap): More than 5yrs Seasonal Allergies Seasonal Allergies: No Past Medical History Surgeries: No Respiratory: No Cardiac: No Neurological: No Genitourinary: No Gastrointestinal: No Endocrine: No HEENT: No Cancer: No Psychosocial: No Integumentary: No Blood Disorders: No Family Medical History No Pertinent Family Hx, Other Conditions/Hx Physical Exam Vital Signs Vital Signs - First Documented 12/19/18 11:20 Temp 97.9 Pulse 96 Resp 18 B/P (MAP) 127/93 (104) Pulse Ox 98 Capillary Refill : Less Than 3 Seconds General Appearance: WD/WN, no apparent distress HEENT: PERRL/EOMI, normal ENT inspection Respiratory: no respiratory distress, no accessory muscle use Neurologic/Psychiatric: alert, normal mood/affect, oriented x 3 Skin: other (there is an incision to the anterior aspect of the proximal humerus. This is held in place with Steri-Strips externally, I am not able to express any serous fluid or blood at this time but he had the dressing with him and it was in fact saturated with dark brown blood. There is no erythema surrounding the incision to suggest infection. His radial pulse is strong. We will reinforce the dressing with nonadherent gauze, then 4 x 4, then taped it will prophylactically treat him with some Keflex) Procedures/Interventions Suture Size: 5-0 Progress/Results/Core Measures Results/Orders Vital Signs/I&O 12/19/18 11:20 Temp 97.9 Pulse 96 Resp 18 B/P (MAP) 127/93 (104) Pulse Ox 98 Blood Pressure Mean: 104 Departure Impression Primary Impression: Draining postoperative wound Qualified Codes: T81.89XA - Other complications of procedures, not elsewhere classified, initial encounter Disposition: 01 HOME, SELF-CARE Condition: Stable Departure-Patient Inst. Decision time for Depature: 12:30 Referrals: BEKAH HARTLEY DO (PCP/Family) Primary Care Physician Patient Instructions: Wound Care Add. Discharge Instructions: 1. Return to ER for any concerns 2. Follow-up with Dr. Will. Call him today to notify of the wound drainage and see if he has any other recommendations for you. Change the gauze as needed. All discharge instructions reviewed with patient and/or family. Voiced understanding. Scripts Cephalexin (Keflex) 500 Mg Capsule 500 MG PO TID, #15 CAP Prov: STANTON COCHRAN SYSTEMS SUPPORT OFFICER 12/19/18 STANTON COCHRAN APRN Dec 19, 2018 12:32
[2018-12-19 12:40] VITALS: BP 127/93
== END 2018-12-19 12:40 | disposition home or self-care (01) ==
LOC: EDUNIT# 11:15 → ER 11:15
DX: T81.89XA Other complications of procedures, not elsewhere classified, initial encounter (principal)
CPT/HCPCS: 99282

== ENCOUNTER → 2019-12-04 | Outpatient (CLI) | payer BC ==
[~2019-12-04] MED LIST changes: +CATHETER FLUSH 10 ML SYR IV PRN; +CEPH-507 PO; +HOLD METFORMIN - RECEIVED CONTRAST 20 ML VIAL IV SCH; +IOHEXOL 350 MG/ML 100 ML (OMNIPAQUE 350) VIAL IV ONE; +NS 100 ML (IVPB) BAG IV ONE
--- NOTE | 2019-12-04 16:55 | Diagnostic Imaging Report ---
PROCEDURE: CT abdomen and pelvis with contrast. TECHNIQUE: Multiple contiguous axial images were obtained through the abdomen and pelvis after administration of intravenous contrast. Auto Exposure Controls were utilized during the CT exam to meet ALARA standards for radiation dose reduction. INDICATION: Right flank pain, six weeks in duration. FINDINGS: There are no opaque urinary tract stones. There is no hydroureteronephrosis. No perinephric or periureteric edema. The liver, gallbladder, bile ducts, spleen, adrenals, and pancreas are unremarkable. The aortoiliac and mesenteric vessels are patent and nonaneurysmal. While I cannot identify the appendix, there are no pericecal or right lower quadrant inflammatory changes to suggest underlying appendicitis. There is no ascites, abscess, hematoma, or other fluid collection. Prostate, seminal vesicles, and urinary bladder are unremarkable. No abdominopelvic aneurysm, adenopathy, or mass. No ascites or fluid collection. IMPRESSION: No acute-appearing abnormality. Dictated by: Dictated on workstation # [id number]
== END ==
LOC: RAD 15:15
PROVIDERS: ATTEND Family Medicine
DX: R10.11 Right upper quadrant pain (principal)
CPT/HCPCS: 74177

== ENCOUNTER → 2021-01-25 | Outpatient (CLI) | payer BC ==
[~2021-01-25] MED LIST changes: +ACHYD1T PO; +BAMLANIVIMAB (NON FORM) 700 MG in NS (IVPB) 100 ML IV ONE; -CATHETER FLUSH 10 ML SYR IV PRN; +EPINEPHrine INJECTION 1 MG/ML AMP IM PRN; -HOLD METFORMIN - RECEIVED CONTRAST 20 ML VIAL IV SCH; -HYDR-3820 PO; -IOHEXOL 350 MG/ML 100 ML (OMNIPAQUE 350) VIAL IV ONE; -NS 100 ML (IVPB) BAG IV ONE; +diphenhydrAMINE 50 MG/ML INJ (BENADRYL) IV PRN
[2021-01-25 13:20] VITALS: BP 138/95
== END ==
LOC: INFUSION 13:11
PROVIDERS: ATTEND Nurse Practitioner Family
DX: Z23 Encounter for immunization (principal); U07.1 COVID-19

== ENCOUNTER 2021-05-07 05:33 | Outpatient (RCR) | payer BC ==
[~2021-05-07] VITALS: Ht 17.8 cm; Wt 132.0 kg
[~2021-05-07 05:33] MED LIST changes: +ATOR10TA66 PO; -BAMLANIVIMAB (NON FORM) 700 MG in NS (IVPB) 100 ML IV ONE; -EPINEPHrine INJECTION 1 MG/ML AMP IM PRN; +LEVO50CA4 PO; +PANT40TA52 PO; -diphenhydrAMINE 50 MG/ML INJ (BENADRYL) IV PRN
== END 2021-05-07 08:58 | disposition home or self-care (01) ==
LOC: PREOP 05:33
PROVIDERS: ATTEND Surgery
DX: Z01.812 Encounter for preprocedural laboratory examination (principal); K21.9 Gastro-esophageal reflux disease without esophagitis; Z20.822 Contact with and (suspected) exposure to COVID-19
CPT/HCPCS: 87635

== ENCOUNTER 2021-05-11 11:40 | Day surgery (SDC) | payer BC ==
[~2021-05-11] VITALS: Ht 178 cm; Wt 132.0 kg
[2021-05-11] MEDS ORDERED: LACTATED RINGERS 1,000 ML IV STA (11:42)
[2021-05-11] MEDS ORDERED: HURRICAINE EXT TUBE (BENZOCAINE) XX PRN (11:45)
[2021-05-11] MEDS ORDERED: LACTATED RINGERS 1,000 ML IV ONE (11:46)
[2021-05-11 11:55] VITALS: BP 122/88
--- NOTE | 2021-05-11 11:55 | Progress Note-Pre Operative ---
Pre-Operative Progress Note H&P Reviewed The H&P was reviewed, patient examined and no changes noted. Date Seen by Provider: May 11, 2021 Time Seen by Provider: 11:55 Date H&P Reviewed: May 11, 2021 Time H&P Reviewed: 11:55 Pre-Operative Diagnosis: gerd ANGELIC LOGAN DO May 11, 2021 11:55
[2021-05-11] MEDS ORDERED: MIDAZOLAM 2 MG/2 ML (VERSED) VIAL ONE (13:28)
[2021-05-11] MEDS ORDERED: proPOfol 200 MG/20 ML (DIPRIVAN) VIAL IV ONE (13:28)
[2021-05-11] MEDS ORDERED: SUCR1TAB36 PO (13:48)
--- NOTE | 2021-05-11 13:49 | Discharge Inst-Simple/Standard ---
Discharge Inst-Standard Discharge Medications New, Converted or Re-Newed RX: Transmitted to Pharmacy Patient Instructions/Follow Up Plan of Care/Instructions/FU: 2 weeks Reema Activity as Tolerated: Yes Discharge Diet: Regular Diet ANGELIC LOGAN DO May 11, 2021 13:49
--- NOTE | 2021-05-11 13:50 | Progress Note-Post Operative ---
Post-Operative Progess Note Surgeon (s)/Felt Strip Finisher (s) Surgeon ANGELIC LOGAN DO Felt Strip Finisher: na Pre-Operative Diagnosis gerd Post-Operative Diagnosis slight gastritis, GE polyp Procedure & Operative Findings Date of Procedure 05/11/21 Procedure Performed/Findings egd c biopsy antrum, hot bx polypectomy ge junction Anesthesia Type per aurist Estimated Blood Loss Estimated blood loss (mL): scant Specimens/Packing Specimens Removed antrum, ge polyp ANGELIC LOGAN DO May 11, 2021 13:50
--- NOTE | 2021-05-11 13:51 | Anesthesia-General Post-Op ---
MAC Patient Condition Mental Status/LOC: Same as Preop Cardiovascular: Satisfactory Nausea/Vomiting: Absent Respiratory: Satisfactory Pain: Controlled Complications: Absent Post Op Complications Complications None Follow Up Care/Instructions Patient Instructions None needed. Anesthesiology Discharge Order Discharge Order Patient is doing well, no complaints, stable vital signs, no apparent adverse anesthesia problems. No complications reported per nursing. PEDRO SCOTT CRNA May 11, 2021 13:51
[2021-05-11 13:52] VITALS: BP 111/69
[2021-05-11 13:55] VITALS: BP 116/82
[2021-05-11 14:20] VITALS: BP 120/79
[2021-05-11 14:25] VITALS: BP 120/79
--- NOTE | 2021-05-11 19:07 | OPERATIVE REPORT ---
DATE OF SERVICE: 05/11/2021 PREOPERATIVE DIAGNOSIS: Gastroesophageal reflux disease. POSTOPERATIVE DIAGNOSES: Gastritis and gastroesophageal polyp. PROCEDURES PERFORMED: Esophagogastroduodenoscopy with biopsy of the antrum and hot biopsy polypectomy of the GE junction. SURGEON: Angelic Benavidez DO. ANESTHESIA: Per WORKING MANAGER. ESTIMATED BLOOD LOSS: Scant. COMPLICATIONS: None. INDICATIONS FOR PROCEDURE: The patient is a 45-year-old male with GERD, pretty significant for him. He understands the risks and benefits of the procedure and wished to proceed with the procedure. Consent was signed in the chart. DESCRIPTION OF PROCEDURE: The patient was taken to the endoscopy suite and placed in a left lateral recumbent position. Timeout was performed. Scope was inserted in the mouth, down the esophagus, stomach and into the duodenum without difficulty. No polyps, masses or ulcerations within the duodenum. Scope was slowly retracted back into the stomach, where there were slight erythematous changes consistent with gastritis. Biopsy of the antrum was obtained. Scope was retroflexed noting no other pathology. Scope was returned to its normal position, slowly withdrawn to the distal esophagus. In the GE junction, there is inflammatory polyp present, which hot biopsy polypectomy was performed. Scope was then slowly retracted back until completely removed, noting no other pathology. The patient tolerated the procedure well without any complications and taken to the recovery room in stable condition. RECOMMENDATIONS: The patient will be started on Carafate 1 gram four times a day. We will await biopsy results. Further recommendations pending. We could also consider repeating EGD in six to eight weeks. Job ID: [id number] DocumentID: [id number] Dictated Date: 05/11/2021 13:52:18 Hospital Aides And Assistants Teacher Date: 05/11/2021 19:06:57 Dictated By: ANGELIC BENAVIDEZ DO
== END 2021-05-11 14:25 | disposition home or self-care (01) ==
LOC: ENDO 11:40
PROVIDERS: ATTEND Surgery
DX: K21.00 Gastro-esophageal reflux disease with esophagitis, without bleeding (principal); K29.70 Gastritis, unspecified, without bleeding; K22.70 Barrett's esophagus without dysplasia; K31.7 Polyp of stomach and duodenum; E03.9 Hypothyroidism, unspecified; E66.01 Morbid (severe) obesity due to excess calories; Z68.41 Body mass index [BMI] 40.0-44.9, adult; Z79.890 Hormone replacement therapy; Z79.899 Other long term (current) drug therapy; Z87.891 Personal history of nicotine dependence; Z82.49 Family history of ischemic heart disease and other diseases of the circulatory system

== ENCOUNTER → 2023-04-19 | Outpatient (CLI) | payer BC ==
[~2023-04-19] VITALS: Ht 177 cm; Wt 123.0 kg
[~2023-04-19] MED LIST changes: +CATHETER FLUSH 10 ML SYR IVP PRN; +SUCR1TAB36 PO
[2023-04-19 13:34] VITALS: BP 141/75
[2023-04-19 13:49] VITALS: BP 128/72
--- NOTE | 2023-04-19 20:55 | STRESS TEST ---
DATE OF SERVICE: 04/19/2023 EXERCISE MYOCARDIAL PERFUSION STUDY ORDERING PHYSICIAN: Karan Roy APRN. PRIMARY PHYSICIAN: Dr. Lloyd. CLINICAL DIAGNOSIS: Shortness of breath. Baseline images were carried out after injection of 10.94 mCi of technetium-99m tetrofosmin. Subsequently, exercise was carried out on a treadmill. Colby protocol was employed. Heart rate response to exercise was normal. There was considerable baseline artifact at peak exercise during the study was not suitable for analysis of the ST segments. Blood pressure response to exercise appears normal. One [ ] spurious. The test was stopped on account of fatigue. 31.9 mCi technetium-99m tetrofosmin were injected after the patient had attained target heart rate and the exercise was continued for approximately another minute. No significant arrhythmia was seen with exercise. Review of images at rest and following stress does not indicate any distinct perfusion defects consistent with significant myocardial ischemia or infarction. The patient had attained 91% of maximum predicted heart rate and 12.1 METs of workload. CONCLUSIONS: 1. No evidence of significant myocardial ischemia or infarction on this study. 2. Normal regional wall motion. 3. Normal global left ventricular systolic function with a calculated ejection fraction of 62%. Job ID: [id number] DocumentID: [id number] Dictated Date: 04/19/2023 17:33:46 Veterinary Poultry Inspector Date: 04/19/2023 20:55:00 Dictated By: ALVARO MONAHAN MD; AZRA; FACP; FACC;
== END ==
LOC: CARD 12:19
PROVIDERS: ATTEND Nurse Practitioner Family
DX: R06.02 Shortness of breath (principal); Z86.39 Personal history of other endocrine, nutritional and metabolic disease; Z82.49 Family history of ischemic heart disease and other diseases of the circulatory system
CPT/HCPCS: 78452; 93017; A9502

== ENCOUNTER → 2023-05-05 | Outpatient (CLI) | payer BC ==
[~2023-05-05] MED LIST changes: -CATHETER FLUSH 10 ML SYR IVP PRN
== END ==
LOC: CARD 08:22
PROVIDERS: ATTEND Nurse Practitioner Family
DX: R06.09 Other forms of dyspnea (principal)
CPT/HCPCS: 93306

== ENCOUNTER 2023-05-31 05:34 | Outpatient (CLI) | payer BC ==
[~2023-05-31] VITALS: Ht 177.8 cm; Wt 120.7 kg
[2023-05-31] MEDS ORDERED: OMEP10CA5 PO (16:34)
[2023-05-31] MEDS ORDERED: LEVO125T6 PO (16:34)
== END 2023-05-31 16:38 | disposition home or self-care (01) ==
LOC: PREOP 05:34
PROVIDERS: ATTEND Surgery
DX: Z01.818 Encounter for other preprocedural examination (principal)